=== PATIENT | male | born 2000 | race Caucasian/White ===

== ENCOUNTER 2023-12-08 11:17 | Emergency (ER) | payer SELFPAY ==
[2023-12-08 11:40] VITALS: BP 116/64; PULSE 93; RESP 18; TEMP 37.4; O2SAT 99; BMI 29.5
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
== END 2023-12-08 15:29 | disposition left against medical advice (07) ==
PROVIDERS: Emergency Provider Family Medicine
DX: Z53.21 Procedure and treatment not carried out due to patient leaving prior to being seen by health care provider (principal)
CPT/HCPCS: 73562